=== PATIENT | male | born 1995 | race Caucasian/White ===

== ENCOUNTER 2017-05-03 12:56 | Emergency (ER) | payer BC ==
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
[2017-05-03] MEDS ORDERED: Silver Sulfadiazine 1%* 20 GM TOPICAL ONE (14:20)
== END 2017-05-03 14:53 | disposition home or self-care (01) ==
LOC: UCEAST 12:56
DX: T24.011A Burn of unspecified degree of right thigh, initial encounter (principal); Y92.9 Unspecified place or not applicable; X11.8XXA Contact with other hot tap-water, initial encounter; Z88.0 Allergy status to penicillin
CPT/HCPCS: 99203; A9270-GY; G0463

== ENCOUNTER 2018-10-31 11:59 | Emergency (ER) | payer BC ==
--- NOTE | 2018-10-31 13:00 | UC ---
Throat Pain/Nasal Victorino HPI - HPI Summary HPI Summary: 22 y/o male presents to the urgent care c/o sore throat, fever, body aches, chills, mild DANIELLE since 10/27/18. Pt reports pain w/ swallowing is 4/10. He goes to [place] and thinks he has probably exposed to influenza. However sore throat started first and denies cough. Pt has taken Advil PO to alleviate symptoms. Pt denies SOB, chest pain, abdominal pain, N/v/d. Pt is UTD w/ all vaccines for his age. - History of Current Complaint Chief Complaint: UCRespiratory Stated Complaint: SORE THROAT Time Seen by Provider: 10/31/18 12:58 Hx Obtained From: Patient Onset/Duration: Gradual Onset, Lasting Days - 4 days, Still Present, Worse Since - yesterday Severity: Moderate Pain Intensity: 4 - sore throat Pain Scale Used: 0-10 Numeric Cough: None Associated Signs & Symptoms: Positive: Dysphagia, Nasal Discharge - clear, Fever - yesterday. Negative: Wheezing - Epiglottits Risk Factors Epiglottis Risk Factors: Negative - Allergies/Home Medications Allergies/Adverse Reactions: Allergies Allergy/AdvReac Type Severity Reaction Status Date / Time Penicillins Allergy Rash Verified 10/31/18 12:29 Home Medications: Home Medications NK [No Home Medications Reported] 10/31/18 [History Confirmed 10/31/18] PMH/Surg Hx/FS Hx/Imm Hx Previously Healthy: Yes - Pt denies PMHX - Surgical History Surgical History: Yes Surgery Procedure, Year, and Place: testicular torsion surgery - Family History Known Family History: Positive: Hypertension - Social History Occupation: Student Lives: Dormitory/Roommates Alcohol Use: Occasionally Substance Use Type: Marijuana Smoking Status (MU): Never Smoked Tobacco - Immunization History Vaccination Up to Date: Yes Review of Systems All Other Systems Reviewed And Are Negative: Yes Constitutional: Positive: Fever, Chills, Other - body aches Skin: Positive: Negative Eyes: Positive: Negative ENT: Positive: Sore Throat, Nasal Discharge - clear Respiratory: Positive: Negative Cardiovascular: Positive: Negative Gastrointestinal: Positive: Negative Genitourinary: Positive: Negative Motor: Positive: Negative Neurovascular: Positive: Negative Musculoskeletal: Positive: Myalgia Neurological: Positive: Headache - mild Psychological: Positive: Negative Is Patient Immunocompromised?: No Physical Exam - Summary Physical Exam Summary: VITAL SIGNS: Reviewed. GENERAL: Patient is a well developed and nourished male who is sitting comfortable in the examining table. Patient is not in any acute respiratory distress. HEAD AND FACE: No signs of trauma. No ecchymosis, hematomas or skull depressions. No sinus tenderness. EYES: PERRLA, EOMI x 2, No injected conjunctiva, no nystagmus. No photophobia. EARS: Hearing grossly intact. Ear canals and tympanic membranes are within normal limits. MOUTH: Positive pharynx with erythema, exudates, palatal petechiae. B/L tonsillar enlargement with exudate. Uvula in midline. NECK: Supple, trachea is midline, Positive anterior cervical lymphadenopathy, no JVD, no carotid bruit, no c-spine tenderness, neck with full ROM. No meningeal signs, no Kernig's or brudzinskis signs. CHEST: Symmetric, no tenderness at palpation LUNGS: Clear to auscultation bilaterally. No wheezing or crackles. CVS: Regular rate and rhythm, S1 and S2 present, no murmurs or gallops appreciated. ABDOMEN: Soft, non-tender. No signs of distention. No rebound no guarding, and no masses palpated. Bowel sounds are normal. EXTREMITIES: FROM in all major joints, no edema, no cyanosis or clubbing. NEURO: Alert and oriented x 3. No acute neurological deficits. Speech is normal and follows commands. SKIN: Dry and warm Triage Information Reviewed: Yes Vital Signs: Initial Vital Signs Temp 98.6 F 10/31/18 12:26 Pulse 79 10/31/18 12:26 Resp 12 10/31/18 12:26 BP 117/74 10/31/18 12:26 Pulse Ox 99 10/31/18 12:26 Throat Pain/Nasal Course/Dx - Course Course Of Treatment: 22 y/o male presents to the urgent care c/o sore throat, fever, body aches, chills, mild DANIELLE since 10/27/18. Pt reports pain w/ swallowing is 4/10. He goes to [place] and thinks he has probably exposed to influenza. However sore throat started first and denies cough. Pt has taken Advil PO to alleviate symptoms. Pt denies SOB, chest pain, abdominal pain, N/v/d. Pt is UTD w/ all vaccines for his age.Hx obtained. Pt with pharyngitis on examination. Rapid strep ordered, result: negative.Influenza A&B ordered: negative. Pt advised to continue taking ibuprofen PO to alleviates symptoms of pain and swelling. Advised on hand washing to avoid spreading. Pt advised to rest, eat well and avoid strenuous exercise. If symptoms do not improve or worsen advised to return to the urgent care or f/u with her PCP for further evaluation and treatment. Pt understood and agreed w/ plan of care. - Differential Dx/Diagnosis Differential Diagnosis/HQI/PQRI: Influenza, Laryngitis, Mononucleosis, Pharyngitis, Tonsillitis, URI Provider Diagnosis: Acute viral pharyngitis Discharge - Sign-Out/Discharge Documenting (check all that apply): Patient Departure - d/c home All imaging exams completed and their final reports reviewed: No Studies - Discharge Plan Condition: Stable Disposition: HOME Patient Education Materials: Pharyngitis (ED) Referrals: [facility] [Outside] - 3 Days Additional Instructions: 1-Please continue taking ibuprofen PO 600mg q6-8hrs prn as instructed after meals to alleviate pain and swelling. Increase fluid intake, eat well, rest and avoid strenuous exercise 2-If symptoms do not improve or worsen please return to the urgent care or f/u with your PCP in 3 days for further evaluation and treatment. - Billing Disposition and Condition Condition: STABLE Disposition: Home
[2018-10-31 13:25] LABS: Influenza A Molecular NEGATIVE (Negative); Influenza B Molecular NEGATIVE (Negative)
== END 2018-10-31 13:34 | disposition home or self-care (01) ==
LOC: UCEAST 11:59
DX: J02.9 Acute pharyngitis, unspecified (principal); Z88.0 Allergy status to penicillin
CPT/HCPCS: 87651; 99211; G0463